=== PATIENT | female | born 1930 | race Caucasian/White ===

== ENCOUNTER 2018-01-31 19:06 | Inpatient (IN) | payer MEDICARE ==
[~2018-01-31] VITALS: Ht 162.6 cm; Wt 99.8 kg
[~2018-01-31 19:06] MED LIST: ACETAMINOPHEN500 M1 PO; ACTOS30 MG PO; AMBIEN10 MG PO; BOUDREAUXS113 GM TP; DEXTROSE 50%/WA50 ML IV; GLIPIZIDE10 MG PO; GLUCAGON1 MG/KIT IM; GLUCAGON1 MG/KIT SQ; HUMALOG 30100 UNITS/ SC; LOVENOX40 MG/0.4 SQ; NORCO 5/325 TAB1 TA1 PO; ONDANSETRON4 MG/2 M3 IV; PERCOCET 5/3251 TA1 PO; PREDNISONE2.5 MG PO; SODIUM CL 0.91000 ML IV; SYNTHROID100 MCG PO
[2018-01-31 20:04] LABS: APPEARANCE HAZY (CLEAR); BILIRUBIN NEGATIVE (NEGATIVE); COLOR YELLOW (YELLOW); GLUCOSE NEGATIVE (NEGATIVE); KETONE MODERATE mg/dL (NEGATIVE); NITRITE NEGATIVE (NEGATIVE); PROTEIN 1+ mg/dL (NEGATIVE); UROBILINOGEN NORMAL (NORMAL)
[2018-01-31 20:05] LABS: BACTERIA MANY /hpf (NONE SEEN); EPITHELIAL CELLS 0-5 /hpf (0-5); RED CELLS - URINE 0-5 /hpf (0-5); WHITE CELLS - URINE >50 /hpf (0-5)
[2018-01-31 20:16] LABS: BASOPHILS 0.2 % (0-2); EOSINOPHILS 0.3 % (0-7); HEMATOCRIT 37.2 % (36.0-48.0); HEMOGLOBIN 12.3 g/dL (12-16); IMMATURE GRANULOCYTES 0.5 % (0-5); LYMPHOCYTES 13.2 % (15-50); MCH 31.7 pg (26.0-34.0); MCHC 33.1 g/dL (31.0-37.0); MCV 95.9 fL (80.0-100.0); MEAN PLATELET VOLUME 9.3 fL (7.4-10.4); MONOCYTES 9.1 % (2-11); NEUTROPHILS 76.7 % (40-80); RBC 3.88 10x6/uL (4.00-5.40); RDW 13.7 % (11.5-14.5)
[2018-01-31 20:26] LABS: PLATELET COUNT 281 10x3/uL (130-400)
[2018-01-31 21:11] LABS: ALKALINE PHOSPHATASE 172 U/L (46-116); ALT (SGPT) 44 U/L (10-68); CALC OSMOLALITY 298 mosm/kg (275-300); CALCIUM 9.1 mg/dL (8.5-10.1); CARBON DIOXIDE 24.9 mmol/L (21.0-32.0); CHLORIDE - SERUM 107 mmol/L (98-107); CREATININE - SERUM 1.1 mg/dL (0.6-1.3); POTASSIUM - SERUM 3.3 mmol/L (3.5-5.1); PROTEIN - SERUM 6.5 g/dL (6.4-8.2); SODIUM 146 mmol/L (136-145); UREA NITROGEN 18 mg/dL (7-18); eGFR NON AFRICAN AMERICAN 50 mL/min (90-120)
[2018-01-31 21:13] LABS: GLUCOSE 201 mg/dL (74-106)
[2018-01-31 21:23] LABS: AMYLASE - SERUM 15 U/L (25-115); CKMB 5.2 U/L (0.0-3.6); MAGNESIUM - SERUM 1.7 mg/dL (1.8-2.4); PRO BNP 2951 pg/mL (0-450); TROPONIN-I < 0.017 ng/mL (0.000-0.060)
[2018-01-31 21:24] LABS: LIPASE 47 U/L (73-393)
[2018-01-31 21:25] LABS: CREATINE KINASE 1154 UL (21-215)
[2018-02-01] VITALS (7 sets, daily range): BP systolic 98–121; BP diastolic 42–63; BMI 37.8
[2018-02-01 01:05] LABS: CKMB 6.2 U/L (0.0-3.6)
[2018-02-01 01:06] LABS: CREATINE KINASE 1124 UL (21-215); TROPONIN-I < 0.017 ng/mL (0.000-0.060)
[2018-02-01 05:40] LABS: BASOPHILS 0.2 % (0-2); HEMATOCRIT 34.3 % (36.0-48.0); HEMOGLOBIN 11.1 g/dL (12-16); IMMATURE GRANULOCYTES 0.5 % (0-5); LYMPHOCYTES 14.2 % (15-50); MCH 31.1 pg (26.0-34.0); MCHC 32.4 g/dL (31.0-37.0); MCV 96.1 fL (80.0-100.0); MEAN PLATELET VOLUME 9.6 fL (7.4-10.4); MONOCYTES 8.1 % (2-11); PLATELET COUNT 233 10x3/uL (130-400); RBC 3.57 10x6/uL (4.00-5.40); RDW 13.8 % (11.5-14.5)
[2018-02-01 06:13] LABS: ALBUMIN 2.7 g/dL (3.4-5.0); ALKALINE PHOSPHATASE 149 U/L (46-116); ALT (SGPT) 42 U/L (10-68); CALC OSMOLALITY 289 mosm/kg (275-300); CALCIUM 8.8 mg/dL (8.5-10.1); CARBON DIOXIDE 26.1 mmol/L (21.0-32.0); CHLORIDE - SERUM 106 mmol/L (98-107); CKMB 4.9 U/L (0.0-3.6); CREATININE - SERUM 0.9 mg/dL (0.6-1.3); GLUCOSE 169 mg/dL (74-106); PROTEIN - SERUM 5.9 g/dL (6.4-8.2); SODIUM 143 mmol/L (136-145); TROPONIN-I < 0.017 ng/mL (0.000-0.060); UREA NITROGEN 16 mg/dL (7-18); eGFR NON AFRICAN AMERICAN 63 mL/min (90-120)
[2018-02-01 06:16] LABS: CREATINE KINASE 867 UL (21-215)
[2018-02-01 12:36] LABS: CKMB 2.1 U/L (0.0-3.6); CREATINE KINASE 657 UL (21-215)
[2018-02-01 12:37] LABS: TROPONIN-I < 0.017 ng/mL (0.000-0.060)
[2018-02-02 04:57] LABS: BASOPHILS 0.1 % (0-2); EOSINOPHILS 3.4 % (0-7); HEMOGLOBIN 9.5 g/dL (12-16); IMMATURE GRANULOCYTES 0.6 % (0-5); LYMPHOCYTES 16.9 % (15-50); MCH 31.8 pg (26.0-34.0); MCHC 32.8 g/dL (31.0-37.0); MONOCYTES 8.4 % (2-11); NEUTROPHILS 70.6 % (40-80); PLATELET COUNT 243 10x3/uL (130-400); RBC 2.99 10x6/uL (4.00-5.40); RDW 14.1 % (11.5-14.5); WBC 6.7 10x3/uL (4.8-10.8)
[2018-02-02 05:23] LABS: ANION GAP 11.9 mmol/L (8-16); CALCIUM 8.4 mg/dL (8.5-10.1); CARBON DIOXIDE 27.2 mmol/L (21.0-32.0); POTASSIUM - SERUM 3.1 mmol/L (3.5-5.1)
[2018-02-02 05:27] LABS: CREATININE - SERUM 1.4 mg/dL (0.6-1.3)
[2018-02-02 08:24] VITALS: BP 106/48
[2018-02-02 12:06] VITALS: BP 132/23
[2018-02-02 22:12] VITALS: BP 115/55
[2018-02-03 06:42] VITALS: BP 115/52
[2018-02-03 10:36] VITALS: BP 113/54
[2018-02-03 13:35] VITALS: BP 118/68
[2018-02-03 18:39] VITALS: BP 122/51
[2018-02-03 21:19] VITALS: BP 131/50
[2018-02-04 05:01] VITALS: BP 152/59
[2018-02-04 09:10] VITALS: BP 128/65
[2018-02-04 13:51] VITALS: BP 123/53
[2018-02-04 14:05] VITALS: Ht 162.6 cm; Wt 99.8 kg
[2018-02-04 20:44] VITALS: BP 134/64
[2018-02-05 01:24] VITALS: BP 148/68
[2018-02-05 05:00] VITALS: BP 149/52
[2018-02-05 08:12] VITALS: BP 126/55
[2018-02-05 11:51] VITALS: BP 133/59
[2018-02-05 16:08] VITALS: BP 128/64
[2018-02-05 20:21] VITALS: BP 152/59
[2018-02-06 01:06] VITALS: BP 154/64
[2018-02-06 04:47] VITALS: BP 158/68
[2018-02-06 08:02] VITALS: BP 108/48
[2018-02-06 12:24] VITALS: BP 153/66
[2018-02-06 15:27] VITALS: BP 126/62
[2018-02-06 20:32] VITALS: BP 151/58
[2018-02-07 00:56] VITALS: BP 154/54
[2018-02-07 04:44] VITALS: BP 158/64
[2018-02-07 08:39] VITALS: BP 141/47
== END 2018-02-07 10:17 | DRG 690 ==
LOC: D.ER 19:06 → D.MS 23:50
PROVIDERS: Family Medicine
DX: N39.0 Urinary tract infection, site not specified (principal); R55 Syncope and collapse; E11.9 Type 2 diabetes mellitus without complications; J44.9 Chronic obstructive pulmonary disease, unspecified; R41.0 Disorientation, unspecified; M17.11 Unilateral primary osteoarthritis, right knee

== ENCOUNTER 2018-02-17 12:16 | Inpatient (IN) | payer MEDICARE ==
[~2018-02-17] VITALS: Ht 152.4 cm
--- NOTE | ~2018-02-17 | CN ---
PATIENT NAME:OPAL LOUIS MEDICAL RECORD: [id number] : [birth year] LOCATION:D. D.2132 ADMIT DATE: 02/17/18 ACCOUNT: [id number] CONSULTING PHYSICIAN: DENNISE HOLBROOK MD REFERRING PHYSICIAN: NILTON SHAH MD DATE OF CONSULTATION: 02/19/2018 CONSULT REQUESTING PHYSICIAN: Nilton Shah MD (Bill) REASON FOR CONSULTATION: Acute hypoxic respiratory failure and acute mental status changes. HISTORY OF PRESENT ILLNESS: Ms. Louis is an 87-year-old female. She is very confused and very irritated, very poor historian. The history was taken mainly by talking to the nursing staff and reviewing the patient's note. The patient was admitted on the 17 of February with mental status changes and nearly syncopal episode, brought into the hospital with worsening shortness of breath, very weak, and lethargic. She is also having dark color urine with sediment in it. She has cough without much sputum production. Denies any fever and chill. She has swelling of the lower extremity which according to the patient is chronic. REVIEW OF SYSTEMS: Mainly in the history of present illness. PAST MEDICAL HISTORY: 1. COPD. 2. Non-Hodgkin lymphoma. 3. Chronic dependent edema. 4. Chronic pain. 5. Diabetes mellitus. 6. Hypothyroidism. 7. History of pneumonia. PAST SURGICAL HISTORY: 1. Cholecystectomy. 2. Herniorrhaphy. 3. Cataract surgery. 4. Appendectomy. 5. T&A. 6. Hysterectomy. 7. Cancer tumor removal. ALLERGIES: SHE IS ALLERGIC TO SULFA, PENICILLIN, CODEINE, CIPRO, MOXIFLOXACIN, AND HYDROCODONE. PRESENT MEDICATIONS: She is on vancomycin IV, meropenem IV, IV Lasix. Her all other medication is reviewed. PERSONAL AND SOCIAL HISTORY: The patient is a nonsmoker, nondrinker. FAMILY HISTORY: Noncontributory. PHYSICAL EXAMINATION: GENERAL: Now, the patient is lying comfortably in bed. She is not in acute distress. CONSULT REPORT [id number] OPAL LOUIS VITAL SIGNS: The blood pressure is 119/59, pulse is 80, respirations 20, temperature is 97.9, SpO2 95% on 3 liters nasal cannula. HEENT: Conjunctivae are pink. Sclerae are not icteric. NECK: Supple, no JVD. CHEST: There are bilateral crackles, wheeze on forceful expiration. HEART: Rhythm regular, normal sound, no murmur. ABDOMEN: Soft, bowel sounds present. No hepatosplenomegaly. RECTAL: Deferred. EXTREMITIES: No cyanosis, no clubbing. There is 2+ pedal edema. SKIN: Warm, normal turgor. CENTRAL NERVOUS SYSTEM: The patient is awake and alert. There are no obvious cranial nerve abnormality. The gait was not tested. IMAGING: Chest radiograph, there are bilateral small pleural effusion. There are bilateral increased interstitial marking, especially bilateral lower lobes. OTHER LABORATORY DATA: CBC: WBC 7.4, hemoglobin 10.5, hematocrit 32.3, the platelet count 235. Chemistry; sodium 140, potassium 4.6, BUN is 25, creatinine 2.3. IMPRESSION: 1. Acute hypoxic respiratory failure. 2. Bilateral pneumonia. 3. Bilateral small pleural effusion, pulmonary edema, congestive heart failure, possible chronic systolic dysfunction. 4. Chronic obstructive pulmonary disease acute exacerbation. 5. Urinary tract infection. 6. Acute mental status changes, possible syncopal episode. RECOMMENDATION: 1. Continue supplemental oxygen. Continue vancomycin and meropenem. Check the proBNP. Continue Lasix. 2. Follow up labs and chest radiograph in the morning. Albuterol and ipratropium nebulizer. Brovana and budesonide nebulizer. Dr. Shah, thank you for involving me in the care of Ms. Louis. TRANSINT:[id number] Voice Confirmation ID: [id number] DOCUMENT ID: [id number] DENNISE HOLBROOK MD at 1208 CC: [id number] DICTATION DATE: 02/19/18 1619 MACHINE I ENGRAVER: 02/19/18 1753 ADM IN [place] [id number] [place] [id number]
[2018-02-17 12:52] LABS: APPEARANCE CLOUDY (CLEAR); BILIRUBIN NEGATIVE (NEGATIVE); COLOR YELLOW (YELLOW); GLUCOSE NEGATIVE (NEGATIVE); KETONE NEGATIVE (NEGATIVE); NITRITE NEGATIVE (NEGATIVE); PROTEIN 1+ mg/dL (NEGATIVE); SPECIFIC GRAVITY 1.015 (1.005-1.020); UROBILINOGEN NORMAL (NORMAL)
[2018-02-17 12:53] LABS: BACTERIA MANY /hpf (NONE SEEN); EPITHELIAL CELLS 0-5 /hpf (0-5); WHITE CELLS - URINE >50 /hpf (0-5); YEAST >1+ WITH HYPHAE /hpf (NONE SEEN)
[2018-02-17 13:20] LABS: BASOPHILS 0.1 % (0-2); EOSINOPHILS 0 % (0-7); HEMATOCRIT 32.3 % (36.0-48.0); HEMOGLOBIN 10.5 g/dL (12-16); IMMATURE GRANULOCYTES 0.9 % (0-5); MCH 32.2 pg (26.0-34.0); MCHC 32.5 g/dL (31.0-37.0); MCV 99.1 fL (80.0-100.0); MEAN PLATELET VOLUME 9.4 fL (7.4-10.4); MONOCYTES 6.8 % (2-11); NEUTROPHILS 81.2 % (40-80); PLATELET COUNT 235 10x3/uL (130-400); RBC 3.26 10x6/uL (4.00-5.40); RDW 17.1 % (11.5-14.5); WBC 7.5 10x3/uL (4.8-10.8)
[2018-02-17 13:37] LABS: ALBUMIN 2.9 g/dL (3.4-5.0); ANION GAP 12.1 mmol/L (8-16); BILIRUBIN - TOTAL 0.4 mg/dL (0.2-1.3); CALCIUM 8.8 mg/dL (8.5-10.1); CARBON DIOXIDE 28.8 mmol/L (21.0-32.0); POTASSIUM - SERUM 4.9 mmol/L (3.5-5.1); PROTEIN - SERUM 6.7 g/dL (6.4-8.2)
[2018-02-18 00:58] VITALS: BP 134/68
[2018-02-18 02:07] VITALS: BMI 45.0
[2018-02-18] MEDS ORDERED: BUMEX2 MG PO (03:44)
[2018-02-18] MEDS ORDERED: GABAPENTIN100 MG PO (03:45)
[2018-02-18 04:00] VITALS: BP 119/40
[2018-02-18 06:53] LABS: BASOPHILS 0.2 % (0-2); EOSINOPHILS 0.3 % (0-7); HEMATOCRIT 29.5 % (36.0-48.0); HEMOGLOBIN 9.4 g/dL (12-16); IMMATURE GRANULOCYTES 0.5 % (0-5); LYMPHOCYTES 12.1 % (15-50); MCH 31.4 pg (26.0-34.0); MCHC 31.9 g/dL (31.0-37.0); MCV 98.7 fL (80.0-100.0); MEAN PLATELET VOLUME 9.2 fL (7.4-10.4); MONOCYTES 7.2 % (2-11); NEUTROPHILS 79.7 % (40-80); PLATELET COUNT 198 10x3/uL (130-400); RBC 2.99 10x6/uL (4.00-5.40); RDW 16.7 % (11.5-14.5); WBC 6.1 10x3/uL (4.8-10.8)
[2018-02-18 07:30] LABS: ALBUMIN 2.6 g/dL (3.4-5.0); ANION GAP 12.4 mmol/L (8-16); BILIRUBIN - TOTAL 0.4 mg/dL (0.2-1.3); CALCIUM 8.5 mg/dL (8.5-10.1); CARBON DIOXIDE 28.2 mmol/L (21.0-32.0); CREATININE - SERUM 2.3 mg/dL (0.6-1.3); POTASSIUM - SERUM 4.6 mmol/L (3.5-5.1); PROTEIN - SERUM 6.1 g/dL (6.4-8.2)
[2018-02-18 10:36] VITALS: BP 151/78
[2018-02-18 11:06] VITALS: Ht 152.4 cm
[2018-02-18 16:15] VITALS: BP 132/62
[2018-02-18 20:00] VITALS: BP 104/46
[2018-02-19] VITALS: BP 113/47
[2018-02-19 05:56] LABS: BASOPHILS 0.2 % (0-2); EOSINOPHILS 0.8 % (0-7); HEMATOCRIT 29.8 % (36.0-48.0); HEMOGLOBIN 9.3 g/dL (12-16); IMMATURE GRANULOCYTES 0.4 % (0-5); LYMPHOCYTES 11.8 % (15-50); MCH 30.9 pg (26.0-34.0); MCHC 31.2 g/dL (31.0-37.0); MEAN PLATELET VOLUME 9.4 fL (7.4-10.4); NEUTROPHILS 79.8 % (40-80); PLATELET COUNT 206 10x3/uL (130-400); RBC 3.01 10x6/uL (4.00-5.40); RDW 16.5 % (11.5-14.5); WBC 5.3 10x3/uL (4.8-10.8)
[2018-02-19 06:19] LABS: ALBUMIN 2.6 g/dL (3.4-5.0); ANION GAP 11.2 mmol/L (8-16); BILIRUBIN - TOTAL 0.5 mg/dL (0.2-1.3); CALCIUM 8.8 mg/dL (8.5-10.1); CARBON DIOXIDE 28.4 mmol/L (21.0-32.0); CREATININE - SERUM 1.8 mg/dL (0.6-1.3); POTASSIUM - SERUM 4.6 mmol/L (3.5-5.1); PROTEIN - SERUM 5.9 g/dL (6.4-8.2)
[2018-02-19 08:53] VITALS: BP 140/57
[2018-02-19 12:36] VITALS: BP 126/60
[2018-02-19 15:38] VITALS: BP 119/59
[2018-02-19 21:12] VITALS: BP 105/48
[2018-02-20 05:05] VITALS: BP 166/66
[2018-02-20 06:30] LABS: BASOPHILS 0.2 % (0-2); EOSINOPHILS 1.2 % (0-7); HEMATOCRIT 29.9 % (36.0-48.0); HEMOGLOBIN 9.3 g/dL (12-16); IMMATURE GRANULOCYTES 0.6 % (0-5); LYMPHOCYTES 13.8 % (15-50); MCHC 31.1 g/dL (31.0-37.0); MCV 99.7 fL (80.0-100.0); MEAN PLATELET VOLUME 9.6 fL (7.4-10.4); MONOCYTES 8.2 % (2-11); PLATELET COUNT 207 10x3/uL (130-400); RDW 16.7 % (11.5-14.5)
[2018-02-20 06:48] LABS: ALBUMIN 2.7 g/dL (3.4-5.0); ANION GAP 13.9 mmol/L (8-16); BILIRUBIN - TOTAL 0.47 mg/dL (0.2-1.3); CALCIUM 8.7 mg/dL (8.5-10.1); CARBON DIOXIDE 26.7 mmol/L (21.0-32.0); CREATININE - SERUM 1.4 mg/dL (0.6-1.3); POTASSIUM - SERUM 4.6 mmol/L (3.5-5.1); PROTEIN - SERUM 5.6 g/dL (6.4-8.2); VANCOMYCIN - RANDOM 10.4 ug/mL (10.0-20.0)
[2018-02-20 08:23] VITALS: BP 137/68
[2018-02-20 11:48] VITALS: BP 170/66
[2018-02-20 17:25] VITALS: BP 142/62
[2018-02-20 20:55] VITALS: BP 130/40
[2018-02-21 00:20] VITALS: BP 184/73
[2018-02-21 04:49] VITALS: BP 136/70
[2018-02-21 06:26] LABS: BASOPHILS 0.2 % (0-2); EOSINOPHILS 1.6 % (0-7); HEMOGLOBIN 9.6 g/dL (12-16); IMMATURE GRANULOCYTES 0.2 % (0-5); LYMPHOCYTES 10.6 % (15-50); MCH 31.3 pg (26.0-34.0); MEAN PLATELET VOLUME 9.6 fL (7.4-10.4); MONOCYTES 8.1 % (2-11); NEUTROPHILS 79.3 % (40-80); PLATELET COUNT 188 10x3/uL (130-400); RBC 3.07 10x6/uL (4.00-5.40); RDW 17.3 % (11.5-14.5); WBC 5.1 10x3/uL (4.8-10.8)
[2018-02-21 06:53] LABS: ALBUMIN 2.7 g/dL (3.4-5.0); ANION GAP 12.6 mmol/L (8-16); BILIRUBIN - TOTAL 0.5 mg/dL (0.2-1.3); CALCIUM 8.5 mg/dL (8.5-10.1); CARBON DIOXIDE 29.2 mmol/L (21.0-32.0); CREATININE - SERUM 1.4 mg/dL (0.6-1.3); POTASSIUM - SERUM 4.8 mmol/L (3.5-5.1)
[2018-02-21 08:18] VITALS: BP 152/65
[2018-02-21 11:20] VITALS: BP 140/61
[2018-02-21 15:09] VITALS: BP 140/52
[2018-02-21 20:00] VITALS: BP 148/67
[2018-02-22] VITALS: BP 152/61
[2018-02-22 04:00] VITALS: BP 173/66
[2018-02-22 06:24] LABS: BASOPHILS 0.2 % (0-2); EOSINOPHILS 1.6 % (0-7); HEMATOCRIT 30.7 % (36.0-48.0); HEMOGLOBIN 9.4 g/dL (12-16); IMMATURE GRANULOCYTES 0.4 % (0-5); LYMPHOCYTES 10.8 % (15-50); MCHC 30.6 g/dL (31.0-37.0); MCV 101.3 fL (80.0-100.0); MEAN PLATELET VOLUME 9.5 fL (7.4-10.4); MONOCYTES 7.2 % (2-11); NEUTROPHILS 79.8 % (40-80); PLATELET COUNT 171 10x3/uL (130-400); RBC 3.03 10x6/uL (4.00-5.40); RDW 17.1 % (11.5-14.5); WBC 5.6 10x3/uL (4.8-10.8)
[2018-02-22 06:53] LABS: ALBUMIN 2.6 g/dL (3.4-5.0); BILIRUBIN - TOTAL 0.5 mg/dL (0.2-1.3); CALCIUM 8.8 mg/dL (8.5-10.1); CARBON DIOXIDE 30.7 mmol/L (21.0-32.0); CREATININE - SERUM 1.2 mg/dL (0.6-1.3); POTASSIUM - SERUM 4.7 mmol/L (3.5-5.1)
[2018-02-22 08:36] VITALS: BP 138/76
[2018-02-22 11:34] VITALS: BP 154/70
[2018-02-22 15:42] VITALS: BP 142/60
[2018-02-22 19:00] VITALS: BP 141/53
[2018-02-23 03:51] VITALS: BP 143/62
[2018-02-23 07:51] VITALS: BP 146/77
[2018-02-23 08:06] LABS: BASOPHILS 0.2 % (0-2); EOSINOPHILS 2.4 % (0-7); HEMATOCRIT 31.6 % (36.0-48.0); HEMOGLOBIN 9.8 g/dL (12-16); IMMATURE GRANULOCYTES 0.2 % (0-5); LYMPHOCYTES 9.5 % (15-50); MCH 31.3 pg (26.0-34.0); MEAN PLATELET VOLUME 9.4 fL (7.4-10.4); NEUTROPHILS 81.7 % (40-80); PLATELET COUNT 167 10x3/uL (130-400); RBC 3.13 10x6/uL (4.00-5.40); RDW 17.2 % (11.5-14.5); WBC 6.3 10x3/uL (4.8-10.8)
[2018-02-23 08:23] LABS: ALBUMIN 2.7 g/dL (3.4-5.0); ANION GAP 9.1 mmol/L (8-16); BILIRUBIN - TOTAL 0.6 mg/dL (0.2-1.3); CARBON DIOXIDE 31.7 mmol/L (21.0-32.0); POTASSIUM - SERUM 4.8 mmol/L (3.5-5.1); PROTEIN - SERUM 5.7 g/dL (6.4-8.2)
[2018-02-23 11:21] VITALS: BP 140/72
[2018-02-23 20:00] VITALS: BP 143/53
[2018-02-24] VITALS: BP 156/69
[2018-02-24 04:00] VITALS: BP 143/58
[2018-02-24 06:17] LABS: BASOPHILS 0.2 % (0-2); EOSINOPHILS 3.8 % (0-7); HEMATOCRIT 31.1 % (36.0-48.0); HEMOGLOBIN 9.7 g/dL (12-16); IMMATURE GRANULOCYTES 0.2 % (0-5); LYMPHOCYTES 11.1 % (15-50); MCH 31.1 pg (26.0-34.0); MCHC 31.2 g/dL (31.0-37.0); MCV 99.7 fL (80.0-100.0); MEAN PLATELET VOLUME 9.5 fL (7.4-10.4); MONOCYTES 7.9 % (2-11); NEUTROPHILS 76.8 % (40-80); PLATELET COUNT 173 10x3/uL (130-400); RBC 3.12 10x6/uL (4.00-5.40); RDW 17.3 % (11.5-14.5); WBC 5.6 10x3/uL (4.8-10.8)
[2018-02-24 06:49] LABS: ANION GAP 11.6 mmol/L (8-16); CALCIUM 9.4 mg/dL (8.5-10.1); CARBON DIOXIDE 29.8 mmol/L (21.0-32.0); CREATININE - SERUM 0.8 mg/dL (0.6-1.3); POTASSIUM - SERUM 4.4 mmol/L (3.5-5.1)
[2018-02-24 09:14] VITALS: BP 185/67
[2018-02-24 11:40] VITALS: BP 153/63
[2018-02-24 15:36] VITALS: BP 181/74
[2018-02-24 20:00] VITALS: BP 150/70
[2018-02-25 06:18] LABS: ANION GAP 8.4 mmol/L (8-16); CALCIUM 9.7 mg/dL (8.5-10.1); CARBON DIOXIDE 35.7 mmol/L (21.0-32.0); MAGNESIUM - SERUM 1.5 mg/dL (1.8-2.4); PHOSPHOROUS 2.6 mg/dL (2.5-4.9); POTASSIUM - SERUM 4.1 mmol/L (3.5-5.1)
[2018-02-25 07:59] VITALS: BP 156/66
[2018-02-25 11:27] VITALS: BP 159/67
[2018-02-25 15:22] VITALS: BP 150/66
[2018-02-25 20:00] VITALS: BP 124/64
[2018-02-26] VITALS: BP 159/70
[2018-02-26 04:00] VITALS: BP 126/57
[2018-02-26 16:52] VITALS: BP 149/78
[2018-02-26 20:05] VITALS: BP 128/50
[2018-02-27] VITALS: BP 143/50
[2018-02-27 04:00] VITALS: BP 138/62
[2018-02-27 08:29] VITALS: BP 136/71
[2018-02-27 11:45] VITALS: BP 142/64
[2018-02-27 20:00] VITALS: BP 143/60
[2018-02-28 02:57] VITALS: BP 142/66
[2018-02-28 05:27] VITALS: BP 140/66
[2018-02-28 06:43] LABS: ANION GAP 8.7 mmol/L (8-16); CALCIUM 8.8 mg/dL (8.5-10.1); CARBON DIOXIDE 39.7 mmol/L (21.0-32.0); CREATININE - SERUM 1.1 mg/dL (0.6-1.3); POTASSIUM - SERUM 3.4 mmol/L (3.5-5.1)
[2018-02-28 08:27] VITALS: BP 151/70
[2018-02-28 11:09] LABS: APPEARANCE CLOUDY (CLEAR); BILIRUBIN NEGATIVE (NEGATIVE); COLOR YELLOW (YELLOW); GLUCOSE NEGATIVE (NEGATIVE); KETONE SMALL mg/dL (NEGATIVE); NITRITE NEGATIVE (NEGATIVE); PROTEIN NEGATIVE (NEGATIVE); SPECIFIC GRAVITY 1.015 (1.005-1.020); UROBILINOGEN NORMAL (NORMAL)
[2018-02-28 11:13] LABS: BACTERIA MODERATE /hpf (NONE SEEN); HYALINE CAST OCC /lpf (NONE SEEN); MUCUS <1+ /lpf (NONE SEEN); RED CELLS - URINE 0-5 /hpf (0-5); WHITE CELLS - URINE 25-50 /hpf (0-5); YEAST >1+ WITH HYPHAE /hpf (NONE SEEN)
[2018-02-28 11:14] LABS: GRANULAR CAST 0-5 /lpf (NONE SEEN)
[2018-02-28 12:15] VITALS: BP 114/60
[2018-02-28 20:00] VITALS: BP 133/55
[2018-03-01 01:00] VITALS: BP 155/56
[2018-03-01 04:00] VITALS: BP 142/60
[2018-03-01 07:56] LABS: ANION GAP 6.4 mmol/L (8-16); CARBON DIOXIDE 39.8 mmol/L (21.0-32.0); CREATININE - SERUM 1.2 mg/dL (0.6-1.3); MAGNESIUM - SERUM 1.5 mg/dL (1.8-2.4); PHOSPHOROUS 2.1 mg/dL (2.5-4.9); POTASSIUM - SERUM 3.2 mmol/L (3.5-5.1)
[2018-03-01 08:53] VITALS: BP 138/56
[2018-03-01 11:43] VITALS: BP 151/62
[2018-03-01 15:17] VITALS: BP 139/60
[2018-03-01 20:00] VITALS: BP 132/73
[2018-03-02] VITALS: BP 119/53
[2018-03-02 04:00] VITALS: BP 138/56
[2018-03-02 06:27] LABS: ANION GAP 5.6 mmol/L (8-16); CALCIUM 8.7 mg/dL (8.5-10.1); CARBON DIOXIDE 39.3 mmol/L (21.0-32.0); CREATININE - SERUM 1.4 mg/dL (0.6-1.3); MAGNESIUM - SERUM 1.5 mg/dL (1.8-2.4)
[2018-03-02 06:31] LABS: POTASSIUM - SERUM 3.9 mmol/L (3.5-5.1)
[2018-03-02 08:44] VITALS: BP 116/50
[2018-03-02 11:42] VITALS: BP 124/56
[2018-03-02 15:23] VITALS: BP 104/50
[2018-03-02 20:00] VITALS: BP 122/47
[2018-03-03 08:19] VITALS: BP 124/52
[2018-03-03 12:00] VITALS: BP 135/49
[2018-03-03 15:00] VITALS: BP 118/97
[2018-03-03 20:50] VITALS: BP 116/57
[2018-03-04 01:02] VITALS: BP 111/53
[2018-03-04 05:30] VITALS: BP 99/58
[2018-03-04 07:43] VITALS: BP 132/71
[2018-03-04 15:50] VITALS: BP 136/72
[2018-03-04 20:00] VITALS: BP 126/59
[2018-03-05 08:02] VITALS: BP 129/68
[2018-03-05 10:38] VITALS: BP 134/77
[2018-03-05 17:38] VITALS: BP 124/78
[2018-03-05 20:00] VITALS: BP 107/50
[2018-03-06 05:40] LABS: BASOPHILS 0.3 % (0-2); EOSINOPHILS 4.3 % (0-7); HEMATOCRIT 28.3 % (36.0-48.0); LYMPHOCYTES 20.8 % (15-50); MCHC 31.8 g/dL (31.0-37.0); MCV 97.6 fL (80.0-100.0); MEAN PLATELET VOLUME 9.8 fL (7.4-10.4); MONOCYTES 7.5 % (2-11); NEUTROPHILS 67.1 % (40-80); PLATELET COUNT 154 10x3/uL (130-400); RDW 15.7 % (11.5-14.5); WBC 3.7 10x3/uL (4.8-10.8)
[2018-03-06 06:07] LABS: ANION GAP 8.3 mmol/L (8-16); CALCIUM 8.7 mg/dL (8.5-10.1); CREATININE - SERUM 1.5 mg/dL (0.6-1.3); POTASSIUM - SERUM 3.3 mmol/L (3.5-5.1)
[2018-03-06 11:49] VITALS: BP 101/77
== END 2018-03-06 15:28 | DRG 291 ==
LOC: D.ER 12:16 → D.EDHOLD 14:56 → D.M2 14:56
PROVIDERS: Family Medicine; Internal Medicine Pulmonary Disease
PROC: 3E1K78Z Irrigation of Genitourinary Tract using Irrigating Substance, Via Natural or Artificial Opening (ICD-10-PCS; principal; 2018-02-17)
DX: I50.23 Acute on chronic systolic (congestive) heart failure (principal); J18.9 Pneumonia, unspecified organism; G93.41 Metabolic encephalopathy; J96.01 Acute respiratory failure with hypoxia; J44.0 Chronic obstructive pulmonary disease with (acute) lower respiratory infection; N39.0 Urinary tract infection, site not specified; N17.9 Acute kidney failure, unspecified; J44.1 Chronic obstructive pulmonary disease with (acute) exacerbation; G89.29 Other chronic pain; E03.9 Hypothyroidism, unspecified; E11.65 Type 2 diabetes mellitus with hyperglycemia; F03.90 Unspecified dementia, unspecified severity, without behavioral disturbance, psychotic disturbance, mood disturbance, and anxiety; Z85.72 Personal history of non-Hodgkin lymphomas; R53.81 Other malaise; B96.89 Other specified bacterial agents as the cause of diseases classified elsewhere; E83.42 Hypomagnesemia; E87.6 Hypokalemia